=== PATIENT | female | born 1970 | race Caucasian/White ===

== ENCOUNTER 2018-12-02 11:10 | Emergency (ER) | payer BC ==
[~2018-12-02] VITALS: Ht 163.8 cm; Wt 115.2 kg
[2018-12-02] MEDS ORDERED: GELATIN SPONGE SIZE 100. TP ONE (11:45)
[2018-12-02] MEDS ORDERED: GELATIN SPONGE SIZE 12-7MM SPONGE. TP ONE ×2 (12:00→12:15)
[2018-12-02] MEDS ORDERED: TRANEXAMIC ACID 1,000 MG/10 ML VIAL. TOP ONE (12:15)
[2018-12-02 12:56] LABS: BASO # 0.1 x10^3/uL (0.0-0.2); BASO % 1 % (0-3); EOS # 0.4 x10^3/uL (0.0-0.7); EOS % 5 % (0-3); HEMATOCRIT 35.6 % (36.0-47.0); LYMPH # 1.4 x10^3/uL (1.0-4.8); LYMPH % 18 % (24-48); MEAN CORPUSCULAR HEMOGLOBIN 30 pg (25-35); MEAN CORPUSCULAR HGB CONC 34 g/dL (31-37); MEAN CORPUSCULAR VOLUME 89 fL (79-100); MONO # 0.5 x10^3/uL (0.0-1.1); MONO % 6 % (0-9); NEUT # 5.5 x10^3/uL (1.8-7.7); NEUT % 70 % (31-73); PLATELET COUNT 333 x10^3/uL (140-400); RED BLOOD COUNT 3.99 x10^6/uL (3.50-5.40); RED CELL DISTRIBUTION WIDTH 13.4 % (11.5-14.5); WHITE BLOOD COUNT 7.9 x10^3/uL (4.0-11.0)
[2018-12-02 13:29] LABS: PROTHROMBIN TIME PATIENT 30.5 SEC (11.7-14.0)
--- NOTE | 2018-12-02 13:45 | PHYS DOC ---
Past Medical History Past Medical History: Asthma, DVT, Hypertension, Other Additional Past Medical Histor: seasonal allergies Past Surgical History: Hysterectomy, Tonsillectomy, Other Additional Past Surgical Histo: tooth extraction,deviated septum Alcohol Use: Occasionally Drug Use: None Adult General Chief Complaint Chief Complaint: DENTAL PROBLEM HPI HPI Patient is a 47 year old female with history of DVTs, currently on Coumadin 2.5 mg Monday and 5 mg on Tuesdays, day, Monday, who presents to the ED today complaining of gum bleeding that begun yesterday, patient states she had a tooth extracted on Monday this last week, she states she was doing fine until yesterday when she went to get a deep massage then later on started bleeding and has been unable to stop the bleeding. Last dose of Coumadin was yesterday. Review of Systems Review of Systems Constitutional: Denies fever or chills [] HENT: Reports left lower gum bleeding. Musculoskeletal: Denies back pain or joint pain [] Integument: Denies rash or skin lesions [] Neurologic: Denies headache, focal weakness or sensory changes [] All other systems were reviewed and found to be within normal limits, except as documented in this note. Current Medications Current Medications Current Medications Medications (Trade) Dose Ordered Sig/Priscilla Start Time Stop Time Status Last Admin Dose Admin Gelatin (Gelfoam Size 12-7mm) 1 each 1X ONCE 12/02/18 12:15 12/02/18 12:16 DC 12/02/18 12:15 1 EACH Gelatin (Gelfoam Size 100) 1 each 1X ONCE 12/02/18 11:45 12/02/18 11:46 Cancel Tranexamic Acid (Cyklokapron) 1,000 mg 1X ONCE 12/02/18 12:15 12/02/18 12:16 DC Allergies Allergies Allergies Coded Allergies Type Severity Reaction Last Updated Verified Sulfa (Sulfonamide Antibiotics) Allergy Severe "throat swells up" 12/02/18 Yes latex Allergy Severe "makes me have an asthma attack" 12/02/18 Yes shellfish derived Allergy Severe "throat swells" 12/02/18 Yes metronidazole Allergy Intermediate vaginal swelling 12/02/18 Yes codeine Allergy Mild itching 12/02/18 Yes fentanyl Allergy Mild itching 12/02/18 Yes hydrochlorothiazide Allergy Mild itching 12/02/18 Yes hydrocodone Allergy Mild itching 12/02/18 Yes Physical Exam Physical Exam Constitutional: Well developed, well nourished, no acute distress, non-toxic appearance. [] HENT: Normocephalic, atraumatic, bilateral external ears normal, oropharynx moist, nose normal. Left lower gum is bleeding at approximately tooth#19 which has been extracted Skin: Warm, dry, no erythema, no rash. [] Back: No tenderness, no CVA tenderness. [] Extremities: No tenderness, no cyanosis, no clubbing, ROM intact, no edema. [] Neurologic: Alert and oriented X 3, normal motor function, normal sensory function, no focal deficits noted. [] Psychologic: Affect normal, judgement normal, mood normal. [] Current Patient Data Vital Signs Vital Signs Date Time Temp Pulse Resp B/P (MAP) Pulse Ox O2 Delivery O2 Flow Rate FiO2 12/02/18 14:37 88 16 147/89 (108) 97 Room Air 12/02/18 11:35 98.8 98.8 Lab Values Laboratory Tests Test 12/02/18 12:15 White Blood Count 7.9 x10^3/uL (4.0-11.0) Red Blood Count 3.99 x10^6/uL (3.50-5.40) Hemoglobin 12.0 g/dL (12.0-15.5) Hematocrit 35.6 % (36.0-47.0) L Mean Corpuscular Volume 89 fL (79-100) Mean Corpuscular Hemoglobin 30 pg (25-35) Mean Corpuscular Hemoglobin Concent 34 g/dL (31-37) Red Cell Distribution Width 13.4 % (11.5-14.5) Platelet Count 333 x10^3/uL (140-400) Neutrophils (%) (Auto) 70 % (31-73) Lymphocytes (%) (Auto) 18 % (24-48) L Monocytes (%) (Auto) 6 % (0-9) Eosinophils (%) (Auto) 5 % (0-3) H Basophils (%) (Auto) 1 % (0-3) Neutrophils # (Auto) 5.5 x10^3/uL (1.8-7.7) Lymphocytes # (Auto) 1.4 x10^3/uL (1.0-4.8) Monocytes # (Auto) 0.5 x10^3/uL (0.0-1.1) Eosinophils # (Auto) 0.4 x10^3/uL (0.0-0.7) Basophils # (Auto) 0.1 x10^3/uL (0.0-0.2) Prothrombin Time 30.5 SEC (11.7-14.0) H Prothrombin Time INR 2.9 (0.8-1.1) H PTT 50 SEC (24-38) H Laboratory Tests 12/02/18 12:15 EKG EKG [] Radiology/Procedures Radiology/Procedures [] Course & Med Decision Making Course & Med Decision Making Pertinent Labs and Imaging studies reviewed. (See chart for details) This is a 47-year-old female patient on Coumadin presenting to the ED today with left lower gum bleeding after tooth was extracted on Monday last week. Bleeding began yesterday. Arrives in the ED bleeding. Labs are ordered. Gel foam was applied to the area with pressure. CBC with a normal CBC, normal hemoglobin 12.0, and hematocrit. 35.6, INR 2.9 On reassessment bleeding has stopped. Patient discharged to home, instructed not to take today's dose of Coumadin. Instructed to contact her doctor tomorrow morning and ask the doctor if she can take Coumadin tomorrow and what the dose should be. Provided return precautions and discharged in stable condition Kirsten Disclaimer Kirsten Disclaimer This electronic medical record was generated, in whole or in part, using a voice recognition dictation system. Departure Departure Impression: Primary Impression: Gum hemorrhage Additional Impression: Bleeding on Coumadin Disposition: HOME, SELF-CARE Condition: STABLE Referrals: PRASANNA EMANUEL APRN (PCP) Your doctor tomorrow and ask him or her if and when you should resume taking Coumadin. Patient Instructions: Bleeding Time Additional Instructions: Your bleeding on the left lower gum has stopped, your INR today was 2.9. Please do not take today's dose of Coumadin. Contact your doctor tomorrow, ask him or her if you can resume Coumadin and what the dose should be. Scripts Clindamycin Hcl (CLINDAMYCIN HCL) 150 Mg Capsule 1 CAP PO TID, #30 CAP Prov: DEYA BECKER APRN 12/02/18 Problem Qualifiers DEYA BECKER CONTAINER CRANE OPERATOR Dec 02, 2018 13:45
[2018-12-02 14:37] VITALS: BP 147/89
[2018-12-02] MEDS ORDERED: CLIN150C14 PO (14:41)
== END 2018-12-02 14:51 | disposition home or self-care (01) ==
LOC: ER 11:10
DX: K06.8 Other specified disorders of gingiva and edentulous alveolar ridge (principal); D68.32 Hemorrhagic disorder due to extrinsic circulating anticoagulants; J45.909 Unspecified asthma, uncomplicated; I10 Essential (primary) hypertension; Z90.710 Acquired absence of both cervix and uterus; Z90.89 Acquired absence of other organs; Z86.718 Personal history of other venous thrombosis and embolism; Z88.2 Allergy status to sulfonamides; Z88.5 Allergy status to narcotic agent; Z88.8 Allergy status to other drugs, medicaments and biological substances; Z91.040 Latex allergy status; Z91.013 Allergy to seafood
CPT/HCPCS: 36415; 85025; 85610; 85730; 99284

== ENCOUNTER 2019-03-28 14:23 | Emergency (ER) | payer BC ==
[~2019-03-28] VITALS: Ht 163.8 cm; Wt 108.6 kg
[~2019-03-28 14:23] MED LIST: CLIN150C14 PO
[2019-03-28] MEDS ORDERED: IV NORMAL SALINE 1000ML BAG 1,000 ML IV SCH (15:27)
--- NOTE | 2019-03-28 15:45 | PHYS DOC ---
Past Medical History Past Medical History: Asthma, CVA, DVT, Hypertension, Other Additional Past Medical Histor: seasonal allergies Past Surgical History: Hysterectomy, Tonsillectomy, Other Additional Past Surgical Histo: tooth extraction,deviated septum Alcohol Use: Occasionally Drug Use: None Adult General Chief Complaint Chief Complaint: LOWER EXT PAIN HPI HPI Patient is a 48 year old female who presents with a couple days has had left lower leg lateral medial pain that feels like the leg is asleep or as if blood is being cut off to it. Patient states the last couple days is swollen but is less swollen today than it has been. Patient states she has had DVT in that leg before. Patient states this morning she began having left chest pain in between the shoulder blades sharp pain. She rates the pain a 6 out of 10 and states she took Aleve this morning for it. Patient states she also began having a cough and shortness of breath today. Patient denies a recent illness. Patient also states that she's having some throat discomfort today. Review of Systems Review of Systems Constitutional: Denies fever or chills [] Eyes: Denies change in visual acuity, redness, or eye pain [] HENT: Denies nasal congestion. sore throat [] Respiratory: cough or shortness of breath [] Cardiovascular: Left chest pain Musculoskeletal: upper mid back pain or Left lower leg pain and swelling. joint pain [] All other systems were reviewed and found to be within normal limits, except as documented in this note. Current Medications Current Medications Current Medications Medications (Trade) Dose Ordered Sig/Priscilla Start Time Stop Time Status Last Admin Dose Admin Albuterol Sulfate (Ventolin Neb Soln) 2.5 mg 1X ONCE 03/28/19 17:45 03/28/19 17:46 DC 03/28/19 18:01 2.5 MG Aspirin (Dyllan Aspirin) 325 mg 1X ONCE 03/28/19 16:30 03/28/19 16:31 DC 03/28/19 16:49 325 MG Prednisone (Prednisone) 40 mg 1X ONCE 03/28/19 17:45 03/28/19 17:46 DC Sodium Chloride 1,000 ml @ 1,000 mls/hr Q1H 03/28/19 15:27 03/28/19 16:26 DC 03/28/19 16:42 1,000 MLS/HR Allergies Allergies Allergies Coded Allergies Type Severity Reaction Last Updated Verified Sulfa (Sulfonamide Antibiotics) Allergy Severe "throat swells up" 12/02/18 Yes latex Allergy Severe "makes me have an asthma attack" 12/02/18 Yes shellfish derived Allergy Severe "throat swells" 12/02/18 Yes metronidazole Allergy Intermediate vaginal swelling 12/02/18 Yes codeine Allergy Mild itching 12/02/18 Yes fentanyl Allergy Mild itching 12/02/18 Yes hydrochlorothiazide Allergy Mild itching 12/02/18 Yes hydrocodone Allergy Mild itching 12/02/18 Yes Physical Exam Physical Exam Constitutional: Well developed, well nourished, no acute distress, non-toxic appearance. [] HENT: Normocephalic, atraumatic, bilateral external ears normal, oropharynx moist, no oral exudates, nose normal. [] Eyes: PERRLA, EOMI, conjunctiva normal, no discharge. [] Neck: Normal range of motion, no tenderness, supple, no stridor. [] Cardiovascular:Heart rate regular rhythm, no murmur [] Lungs & Thorax: Bilateral breath sounds clear to auscultation [] Abdomen: Bowel sounds normal, soft, no tenderness, no masses, no pulsatile mas ses. [] Skin: Warm, dry, no erythema, no rash. [] Back: No tenderness, no CVA tenderness. [] Extremities: Left lower left lateral and medial tenderness, no cyanosis, no clubbing, ROM intact, LLL 1+ non pitting edema. [] Neurologic: Alert and oriented X 3, normal motor function, normal sensory function, no focal deficits noted. [] Psychologic: Affect normal, judgement normal, mood normal. [] Current Patient Data Vital Signs Vital Signs Date Time Temp Pulse Resp B/P (MAP) Pulse Ox O2 Delivery O2 Flow Rate FiO2 03/28/19 18:05 99 Room Air 03/28/19 17:41 63 16 122/65 (84) 03/28/19 15:10 98.2 98.2 Lab Values Laboratory Tests Test 03/28/19 15:40 03/28/19 16:40 Urine Collection Type Void Urine Color Yellow Urine Clarity Clear Urine pH 6.5 Urine Specific [place] 1.020 Urine Protein Negative mg/dL (NEG-TRACE) Urine Glucose (UA) Negative mg/dL (NEG) Urine Ketones (Stick) Negative mg/dL (NEG) Urine Blood Negative (NEG) Urine Nitrite Negative (NEG) Urine Bilirubin Negative (NEG) Urine Urobilinogen Dipstick 0.2 mg/dL (0.2 mg/dL) Urine Leukocyte Esterase Negative (NEG) Urine RBC 0 /HPF (0-2) Urine WBC Occ /HPF (0-4) Urine Squamous Epithelial Cells Few /LPF Urine Bacteria Few /HPF (0-FEW) White Blood Count 7.6 x10^3/uL (4.0-11.0) Red Blood Count 4.27 x10^6/uL (3.50-5.40) Hemoglobin 12.3 g/dL (12.0-15.5) Hematocrit 36.8 % (36.0-47.0) Mean Corpuscular Volume 86 fL (79-100) Mean Corpuscular Hemoglobin 29 pg (25-35) Mean Corpuscular Hemoglobin Concent 33 g/dL (31-37) Red Cell Distribution Width 13.6 % (11.5-14.5) Platelet Count 349 x10^3/uL (140-400) Neutrophils (%) (Auto) 66 % (31-73) Lymphocytes (%) (Auto) 23 % (24-48) L Monocytes (%) (Auto) 7 % (0-9) Eosinophils (%) (Auto) 3 % (0-3) Basophils (%) (Auto) 1 % (0-3) Neutrophils # (Auto) 5.0 x10^3/uL (1.8-7.7) Lymphocytes # (Auto) 1.8 x10^3/uL (1.0-4.8) Monocytes # (Auto) 0.5 x10^3/uL (0.0-1.1) Eosinophils # (Auto) 0.2 x10^3/uL (0.0-0.7) Basophils # (Auto) 0.1 x10^3/uL (0.0-0.2) Prothrombin Time 16.8 SEC (11.7-14.0) H Prothrombin Time INR 1.4 (0.8-1.1) H D-Dimer (Bre) < 0.27 ug/mlFEU Sodium Level 144 mmol/L (136-145) Potassium Level 4.2 mmol/L (3.5-5.1) Chloride Level 105 mmol/L (98-107) Carbon Dioxide Level 30 mmol/L (21-32) Anion Gap 9 (6-14) Blood Urea Nitrogen 14 mg/dL (7-20) Creatinine 1.0 mg/dL (0.6-1.0) Estimated GFR (Cockcroft-Gault) 59.4 BUN/Creatinine Ratio 14 (6-20) Glucose Level 105 mg/dL (70-99) H Calcium Level 8.6 mg/dL (8.5-10.1) Total Bilirubin 0.6 mg/dL (0.2-1.0) Aspartate Amino Transferase (AST) 20 U/L (15-37) Alanine Aminotransferase (ALT) 33 U/L (14-59) Alkaline Phosphatase 74 U/L (46-116) Troponin I Quantitative < 0.017 ng/mL (0.000-0.055) Total Protein 6.8 g/dL (6.4-8.2) Albumin 3.7 g/dL (3.4-5.0) Albumin/Globulin Ratio 1.2 (1.0-1.7) Laboratory Tests 03/28/19 16:40 Laboratory Tests 03/28/19 16:40 EKG EKG Sinus Rhythm and no STEMI[] Interpretation Time: [address] Ngo Radiology/Procedures Radiology/Procedures [] Impressions: [facility] [address] [place] [address] IMAGING REPORT Signed PATIENT: FAITH MURRAY RACCOUNT: [id number] : 1970 LOCATION: ER AGE: 48 SEX: F EXAM STATUS: REG ER ORD. PHYSICIAN: MAGALYS RAE APRN REASON: Upper back pain, no injury PROCEDURE: THORACIC SPINE 3V Two-view chest and 3 views thoracic spine dated 03/28/2019. No comparison available. Clinical indication: Mid chest pain. FINDINGS: PA and lateral views obtained. Heart and mediastinal contours are within normal limits. Lungs are somewhat hyperinflated but otherwise clear. No consolidation or pleural effusion. No pneumothorax. 3 views thoracic spine show normal sagittal alignment. Vertebral body heights are maintained. Mild endplate hypertrophic changes throughout. No paraspinous soft tissue abnormality. IMPRESSION: 1. No acute radiographic abnormality of chest or thoracic spine. 2. Mild multilevel thoracic spondylosis. Electronically signed by: Festus Mcdowell MD (03/28/2019 4:09 PM) [facility] DICTATED and SIGNED BY: FESTUS MCDOWELL MD DATE: 03/28/[address] [address] IMAGING REPORT Signed PATIENT: FAITH MURRAYCOUNT: [id number] : 1970 LOCATION: ER AGE: 48 SEX: F EXAM STATUS: REG ER ORD. PHYSICIAN: MAGALYS RAE APRN REASON: pain, swelling, hx dvt PROCEDURE: VENOUS LOWER EXTREMITY LEFT VENOUS LOWER EXTREMITY LEFT History: Pain and swelling. History of DVT. Comparison: None. Discussion: Multiple longitudinal and transverse high resolution real-time images of the venous system of left lower extremity were obtained with color and Doppler sampling. Incomplete compression of the left common femoral, deep femoral, superficial femoral and popliteal veins with eccentric echogenicity. There is flow through these veins. No evidence of occlusion. Patent posterior tibial and peroneal veins. Patent greater saphenous vein. Impression: 1. Partial chronic appearing left common femoral to popliteal vein thrombus. Electronically signed by: Sonido Marcum DO (03/28/2019 4:41 PM) [facility] DICTATED and SIGNED BY: SONIDO MARCUM DO DATE: 03/28/[address] [address] IMAGING REPORT Signed PATIENT: FAITH MURRAY RACCOUNT: [id number] : 1970 LOCATION: ER AGE: 48 SEX: F EXAM STATUS: REG ER ORD. PHYSICIAN: MAGALYS RAE APRN REASON: DIZZINESS, HX CVA, ON BLOOD THINNERS PROCEDURE: CT HEAD WO CONTRAST CT head without contrast dated 03/28/2019. No comparison available. CLINICAL INDICATION: Dizziness. History of CVA. TECHNIQUE: Venous axial imaging the head performed from skull base to vertex. No contrast administered. One or more of the following individualized dose reduction techniques were utilized for this examination: 1. Automated exposure control 2. Adjustment of the mA and/or kV according to patient size 3. Use of iterative reconstruction technique. FINDINGS: Ventricles and sulci are within normal limits for age. No midline shift or mass effect. Brain parenchyma is of normal attenuation. No hemorrhage or extra-axial collection. Posterior fossa and brainstem unremarkable. Visualized paranasal sinuses and mastoid air cells are clear. No apparent calvarial abnormality. IMPRESSION: No evidence of acute intracranial abnormality. Electronically signed by: Festus Mcdowell MD (03/28/2019 5:43 PM) [facility] DICTATED and SIGNED BY: FESTUS MCDOWELL MD DATE: 03/28/191742 Course & Med Decision Making Course & Med Decision Making Ambulatory with a steady gait. Skin pink warm and dry. Throat is pink, non swollen and no exudates. Patient states she feels dryness in her throat and then drinks water and will start to cough. Speaks in full clear sentences. Patient is able to change her clothes and change into the gown by herself and get in and out of the bed by herself. 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 With full weight bearing on both lower extremities. Patient denies any weaknesses. The left lower leg is 1+ more swollen than the right lower leg. No calf tenderness but patient states she has tenderness to the medial and lateral aspects of the lower leg. Denies skin color changes or the temperature changes. Pedal pulses strong and present. Cap refill less than 3 seconds. Lung are Clear to auscultation all lobes. Patient states that the pain between her shoulder blades started this morning and that is constant and nothing makes it worse or better. Patient states the pain is sharp. Patient states she has a nonproductive cough that started today. Alert and oriented. PERRLA. Patient states that when she goes to stand up today she's noticed that she is dizzy at times. Patient denies syncope, hitting her head, headache, weakness, abdominal pain, nausea, vomiting, diarrhea, fever, drugs, smoking, visual changes. Bilateral blood pressures are 131/71 and 131/70. Patient has a history of asthma and states that she hasn't had a problem with her asthma since she lost weight. I educated the patient that asthma and does not go away after losing weight. I told the patient that her asthma may be acting up due to the weather change or if she maybe she is started to catch a cold her allergies are acting up. Patient does agree to a breathing treatment to see if that helps with her soa. US shows Impression: 1. Partial chronic appearing left common femoral to popliteal vein thrombus. Patient is already on Xeralto. D dimer negative. I have consulted with Dr Ngo on this patients care plan. She states a chest CTA is not needed and the patient can follow up with primary care provider. Dragon Disclaimer Dragon Disclaimer This electronic medical record was generated, in whole or in part, using a voice recognition dictation system. The HEART Score for CP Pts HEART Score for Chest Pain: HEART Score for Chest Pain Response (Comments) Value History Slighlty/Non-Suspicious 0 ECG Normal 0 Age >45 - < 65 1 Risk Factors 1 or 2 Risk Factors 1 Troponin < Normal Limit 0 Total 2 Risk Factors: Risk Factors: DM, Current or recent (<one month) smoker, HTN, HLP, family history of CAD, obesity. Risk Scores: Score 0 - 3: 2.5% MACE over next 6 weeks - Discharge Home Score 4 - 6: 20.3% MACE over next 6 weeks - Admit for Clinical Observation Score 7 - 10: 72.7% MACE over next 6 weeks - Early Invasive Strategies NIHSS Stroke Scale NIH Stroke Scale: NIH Stroke Scale Response (Comments) Value Level of Consciousness: 0 Alert/Responsive 0 LOC Questions: 0 Answers both correctly 0 LOC Commands: 0 Performs both tasks 0 Best Gaze: 0 Normal 0 Visual: 0 No visual loss 0 Facial Palsy: 0 Normal, symmetrical 0 Motor - Left Arm 0 No drift 0 Motor - Right Arm 0 No drift 0 Motor - Left Leg 0 No drift 0 Motor: Right Leg 0 No drift 0 Limb Ataxia: 0 Absent 0 Sensory: 0 No loss 0 Best Language: 0 Normal 0 Dysathria: 0 Normal 0 Extinction and Inattention: 0 Normal 0 Total 0 Departure Departure Impression: Primary Impression: Cough Additional Impressions: Shortness of breath Chronic deep vein thrombosis (DVT) Disposition: 01 HOME, SELF-CARE Condition: STABLE Referrals: PRASANNA EMANUEL APRN (PCP) Patient Instructions: Asthma, Adult, Deep Vein Thrombosis Additional Instructions: FOLLOW UP WITH PRIMARY CARE PROVIDER TOMORROW. IF YOUR SYMPTOMS WORSEN CALL 911. Scripts Albuterol Sulfate (PROAIR HFA INHALER) 8.5 Gm Hfa.aer.ad 1 PUFF INH PRN Q6HRS PRN for SHORTNESS OF BREATH, #1 INHALER 0 Refills Prov: MAGALYS RAE CLIENT MANAGER [employer] 03/28/19 Methylprednisolone (MEDROL) 4 Mg Tab.ds.pk 1 PKG PO UD, #1 PKG Prov: MAGALYS RAE APRN 03/28/19 Problem Qualifiers Additional Impressions: Chronic deep vein thrombosis (DVT) DVT location: lower extremity Affected thrombotic vein of extremity: femoral Laterality: left Qualified Codes: I82.512 - Chronic embolism and thrombosis of left femoral vein MAGALYS RAE CLIENT MANAGER [employer] Mar 28, 2019 15:45
[2019-03-28 15:51] LABS: BILIRUBIN,URINE NEGATIVE (NEG); CLARITY,URINE CLEAR; COLOR,URINE YELLOW; NITRITE,URINE NEGATIVE (NEG); PH,URINE 6.5; PROTEIN,URINE NEGATIVE (NEG-TRACE); UROBILINOGEN,URINE 0.2 mg/dL (0.2 mg/dL)
[2019-03-28 16:07] LABS: BACTERIA,URINE FEW /HPF (0-FEW); RBC,URINE 0 /HPF (0-2); SQUAMOUS EPITHELIAL CELL,UR FEW /LPF; WBC,URINE OCC /HPF (0-4)
--- NOTE | 2019-03-28 16:12 | RAD ---
Two-view chest and 3 views thoracic spine dated 03/28/2019. No comparison available. Clinical indication: Mid chest pain. FINDINGS: PA and lateral views obtained. Heart and mediastinal contours are within normal limits. Lungs are somewhat hyperinflated but otherwise clear. No consolidation or pleural effusion. No pneumothorax. 3 views thoracic spine show normal sagittal alignment. Vertebral body heights are maintained. Mild endplate hypertrophic changes throughout. No paraspinous soft tissue abnormality. IMPRESSION: 1. No acute radiographic abnormality of chest or thoracic spine. 2. Mild multilevel thoracic spondylosis. Electronically signed by: Festus Mcdowell MD (03/28/2019 4:09 PM) [facility]
[2019-03-28] MEDS ORDERED: ASPIRIN 325 MG TABLET PO ONE (16:30)
--- NOTE | 2019-03-28 16:40 | EKG ---
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
--- NOTE | 2019-03-28 16:44 | RAD ---
VENOUS LOWER EXTREMITY LEFT History: Pain and swelling. History of DVT. Comparison: None. Discussion: Multiple longitudinal and transverse high resolution real-time images of the venous system of left lower extremity were obtained with color and Doppler sampling. Incomplete compression of the left common femoral, deep femoral, superficial femoral and popliteal veins with eccentric echogenicity. There is flow through these veins. No evidence of occlusion. Patent posterior tibial and peroneal veins. Patent greater saphenous vein. Impression: 1. Partial chronic appearing left common femoral to popliteal vein thrombus. Electronically signed by: Sonido Marcum DO (03/28/2019 4:41 PM) [id number]
[2019-03-28 16:55] LABS: BASO # 0.1 x10^3/uL (0.0-0.2); BASO % 1 % (0-3); EOS # 0.2 x10^3/uL (0.0-0.7); EOS % 3 % (0-3); HEMATOCRIT 36.8 % (36.0-47.0); HEMOGLOBIN 12.3 g/dL (12.0-15.5); LYMPH # 1.8 x10^3/uL (1.0-4.8); LYMPH % 23 % (24-48); MEAN CORPUSCULAR HEMOGLOBIN 29 pg (25-35); MEAN CORPUSCULAR HGB CONC 33 g/dL (31-37); MEAN CORPUSCULAR VOLUME 86 fL (79-100); MONO # 0.5 x10^3/uL (0.0-1.1); MONO % 7 % (0-9); NEUT % 66 % (31-73); PLATELET COUNT 349 x10^3/uL (140-400); RED BLOOD COUNT 4.27 x10^6/uL (3.50-5.40); RED CELL DISTRIBUTION WIDTH 13.6 % (11.5-14.5); WHITE BLOOD COUNT 7.6 x10^3/uL (4.0-11.0)
[2019-03-28 17:06] LABS: GFR 59.4; POTASSIUM 4.2 mmol/L (3.5-5.1); PROTHROMBIN TIME PATIENT 16.8 SEC (11.7-14.0)
[2019-03-28 17:10] LABS: D-DIMER < 0.27 ug/mlFEU (0.00-0.50)
[2019-03-28 17:12] LABS: ALBUMIN 3.7 g/dL (3.4-5.0); ALBUMIN/GLOBULIN RATIO 1.2 (1.0-1.7); CALCIUM 8.6 mg/dL (8.5-10.1); TOTAL BILIRUBIN 0.6 mg/dL (0.2-1.0); TOTAL PROTEIN 6.8 g/dL (6.4-8.2)
[2019-03-28] MEDS ORDERED: ALBUTEROL SULFATE 2.5 MG/3 ML NEBU. NEB ONE (17:45)
[2019-03-28] MEDS ORDERED: predniSONE 20 MG TABLET PO ONE (17:45)
--- NOTE | 2019-03-28 17:45 | RAD ---
CT head without contrast dated 03/28/2019. No comparison available. CLINICAL INDICATION: Dizziness. History of CVA. TECHNIQUE: Venous axial imaging the head performed from skull base to vertex. No contrast administered. One or more of the following individualized dose reduction techniques were utilized for this examination: 1. Automated exposure control 2. Adjustment of the mA and/or kV according to patient size 3. Use of iterative reconstruction technique. FINDINGS: Ventricles and sulci are within normal limits for age. No midline shift or mass effect. Brain parenchyma is of normal attenuation. No hemorrhage or extra-axial collection. Posterior fossa and brainstem unremarkable. Visualized paranasal sinuses and mastoid air cells are clear. No apparent calvarial abnormality. IMPRESSION: No evidence of acute intracranial abnormality. Electronically signed by: Festus Mcdowell MD (03/28/2019 5:43 PM) [facility]
[2019-03-28 18:12] VITALS: BP 130/86
[2019-03-28] MEDS ORDERED: METH4TAB2 PO (18:16)
[2019-03-28] MEDS ORDERED: ALBU2.5V8 INH (18:16)
== END 2019-03-28 18:35 | disposition home or self-care (01) ==
LOC: ER 14:23
DX: I82.512 Chronic embolism and thrombosis of left femoral vein (principal); R05 Cough; R06.02 Shortness of breath; R07.89 Other chest pain; R51 Headache; J45.909 Unspecified asthma, uncomplicated; I10 Essential (primary) hypertension; Z86.73 Personal history of transient ischemic attack (TIA), and cerebral infarction without residual deficits; Z90.710 Acquired absence of both cervix and uterus; Z88.2 Allergy status to sulfonamides; Z91.040 Latex allergy status; Z88.4 Allergy status to anesthetic agent; Z88.5 Allergy status to narcotic agent; Z91.018 Allergy to other foods; Z88.8 Allergy status to other drugs, medicaments and biological substances
CPT/HCPCS: 36415; 70450; 71046; 72072; 80053; 81001; 84484; 85025; 85379; 85610; 93005; 93971; 94640; 99285; J7030; J7512; J7613

== ENCOUNTER → 2021-07-07 | Outpatient (CLI) | payer OTHER ==
[~2021-07-07] MED LIST changes: +ALBU2.5V8 INH; -CLIN150C14 PO; +CLIN150C16 PO; +METH4TAB2 PO
--- NOTE | 2021-07-07 16:30 | KCIC ---
EXAMINATION: MRI RIGHT KNEE WITHOUT IV CONTRAST CLINICAL HISTORY: Right knee pain following slip on mud. Patella dislocated laterally. Leg swelling. TECHNIQUE: Multiplanar multisequential images obtained through the knee without intravenous contrast. COMPARISON: Right knee radiographs 07/01/2021 FINDINGS: MENISCI: Medial Meniscus: Intact Lateral Meniscus: Intact LIGAMENTS: ACL: Intact PCL: Intact MCL: Intact LCL Complex: Intact CARTILAGE: Medial Femoral Condyle: Small area(s) of low grade (less than 50% thickness) partial thickness cartil age loss and or fissuring in the weightbearing portion of the condyle Medial Tibial Plateau: Normal Lateral Femoral Condyle: Normal Lateral Tibial Plateau: Normal Patella: Small areas(s) of predominantly low grade (less than 50% thickness) cartilage loss and or fi ssuring with smaller area(s) of full thickness cartilage loss and or fissuring in the medial facet Trochlea: Normal TENDONS: Distal quadriceps and patellar tendons intact. Popliteus tendon intact. BONES AND MARROW: No evidence of acute fracture or suspicious marrow replacing process. MUSCLES: Muscle bulk and signal intensity within normal limits. JOINT FLUID AND SYNOVIUM: No joint effusion. No synovitis. Tiny Gay's cyst. OTHER: Avulsion of the transverse band of the medial patellofemoral ligament at the femoral attachmen t with surrounding soft tissue edema. Medial retinaculum remains intact at the patellar attachment. M ild lateral tilt of the patella. IMPRESSION: Medial patellofemoral ligament avulsion at the femoral attachment with mild lateral tilt of the nieves la. No associated fracture, osteochondral injury, or bone bruises. Electronically signed by: Steve Baird DO (07/07/2021 4:28 PM) [id number]
== END ==
LOC: KCIC MRI 13:51
PROVIDERS: ATTEND Orthopaedic Surgery Sports Medicine
DX: S83.411A Sprain of medial collateral ligament of right knee, initial encounter (principal); X58.XXXA Exposure to other specified factors, initial encounter; Y93.89 Activity, other specified; Y92.89 Other specified places as the place of occurrence of the external cause; Y99.8 Other external cause status
CPT/HCPCS: 73721

== ENCOUNTER → 2021-08-06 | Outpatient (CLI) | payer OTHER ==
[~2021-08-06] MED LIST changes: +ALLO100T PO; +AMLO-187 PO; +CETI10TA74 PO; +CYCL10TA19 PO; +ETON1VAG VG; +FLUT9.9S NS; +LOSA-73 PO; +OXYC1TAB15 PO; +RIVA20TA2 PO
== END ==
LOC: LAB 10:35
PROVIDERS: ATTEND Orthopaedic Surgery Sports Medicine
DX: Z01.812 Encounter for preprocedural laboratory examination (principal); Z20.822 Contact with and (suspected) exposure to COVID-19
CPT/HCPCS: U0003

== ENCOUNTER 2021-08-10 06:00 | Day surgery (SDC) | payer OTHER ==
[~2021-08-10] VITALS: Ht 162.6 cm; Wt 121.5 kg
[~2021-08-10 06:00] MED LIST changes: -ALLO100T PO; -AMLO-187 PO; -CETI10TA74 PO; -CYCL10TA19 PO; -ETON1VAG VG; -FLUT9.9S NS; +IV RINGERS,LACTATED 1000ML 1,000 ML IV SCH; -LOSA-73 PO; -OXYC1TAB15 PO; -RIVA20TA2 PO; +ceFAZolin SODIUM 3 GM in IV DEXTROSE 5% 100ML 100 ML IV PRN; +fentaNYL PF VIAL 100 MCG/2 ML VIAL IVP PRN
[2021-08-10 06:36] VITALS: BP 158/72
[2021-08-10] MEDS ORDERED: ONDANSETRON PF 4 MG/2 ML VIAL. ONE (06:40)
[2021-08-10] MEDS ORDERED: PROPOFOL 10 MG/ML (20ML) VIAL. IV ONE (06:40)
[2021-08-10] MEDS ORDERED: LIDOCAINE 2% PF 5 ML VIAL. ONE (06:40)
[2021-08-10] MEDS ORDERED: GLYCOPYRROLATE 1 MG/5 ML VIAL. ONE (06:41)
[2021-08-10] MEDS ORDERED: SUCCINYLCHOLINE 200 MG/10 ML VIAL. ONE (06:41)
[2021-08-10] MEDS ORDERED: NEOSTIGMINE METHYLSULFATE 5 MG/5 ML SYRINGE. ONE (06:41)
[2021-08-10] MEDS ORDERED: ROCURONIUM 50 MG/5 ML VIAL. ONE (06:41)
[2021-08-10] MEDS ORDERED: FAMOTIDINE 20 MG/2 ML VIAL ONE (06:42)
[2021-08-10] MEDS ORDERED: DEXAMETHASONE SOD PHOS 4 MG/ML VIAL ONE (06:43)
[2021-08-10] MEDS ORDERED: fentaNYL PF VIAL 250 MCG/5 ML VIAL ONE (06:44)
[2021-08-10] MEDS ORDERED: LOSA-73 PO (06:45)
[2021-08-10] MEDS ORDERED: RIVA20TA2 PO (06:45)
[2021-08-10] MEDS ORDERED: ALLO100T PO (06:46)
[2021-08-10] MEDS ORDERED: ETON1VAG VG (06:46)
[2021-08-10] MEDS ORDERED: AMLO-187 PO (06:47)
[2021-08-10] MEDS ORDERED: CETI10TA74 PO (06:47)
[2021-08-10] MEDS ORDERED: FLUT9.9S NS (06:48)
[2021-08-10] MEDS ORDERED: CYCL10TA19 PO (06:48)
[2021-08-10] MEDS ORDERED: DESFLURANE > 120 MINUTES IH ONE (06:50)
[2021-08-10] MEDS ORDERED: LIDOCAINE 1% Multi-Dose 20 ML VIAL. ONE (07:04)
[2021-08-10] MEDS ORDERED: EPINEPHrine VIAL 30 MG/30 ML VIAL ONE (07:04)
[2021-08-10] MEDS ORDERED: BUPIVACAINE MPF 0.5% 30 ML VIAL. ONE (07:05)
[2021-08-10] MEDS ORDERED: DEXMEDETOMIDINE 200 MCG/2 ML VIAL. ONE (07:19)
[2021-08-10] MEDS ORDERED: OXYC1TAB15 PO (08:01)
--- NOTE | 2021-08-10 08:02 | DISCH ---
DISCHARGE INSTRUCTIONS Condition on Discharge Condition on Discharge: Stable Activity After Discharge Activity Instructions for Disc: Other ROM activity Other activity instructions: ok to WBAT with brace locked in extension Bathing Instructions: Shower-keep dressing dry Weight Bearing Status after Di: Other, see below Diet after Discharge Diet after Discharge: Regular Wound Incision Care Wound/Incision Care: Ice to area for comfort, Keep wound/cast CDI, Change dressing Other wound/incision instructi: change dressing in [address] after DC Call your doctor for: Concerns you may have Follow-Up Follow up with: Rell in 2 wks BENNY ARANDA II, MD Aug 10, 2021 08:02
--- NOTE | 2021-08-10 08:06 | PDOC4 ---
Operative Note Operative Note Date of procedure: 08/10/2021 Surgeon: William Aranda Welding Tester: Arnold Rodriges, certified medical transcriptionist was necessary to help position and prepped the patient and for wound closure Preoperative diagnosis: Recurrent right patellar dislocation Postoperative diagnosis: Same Procedure performed: Allograft medial patellofemoral ligament reconstruction Diagnostic knee arthroscopy Anesthesia: General Blood loss: 20 mL Tourniquet time: Less than 1 hour Complications: None Components inserted: Suture fix anchors, 1.9x2, interference screw Findings: Examination under anesthesia demonstrated a dislocatable patella. Knee was otherwise unremarkable grossly arthroscopic findings included grade 2-3 changes centrally patella, remainder of articular cartilage showed no remarkable pathology, lateral tibial plateau was a little soft. Both menisci intact, both cruciates intact Reason for procedure: Patient is a very pleasant 50-year-old female who is still suffering from recurrent patellar dislocations. Please see my outpatient consult note for further details. Clinical and radiographic examination were consistent with the above preoperative diagnosis and MRI calculation for TTT G provided guidance as well. We had a discussion of the risk benefits and alternatives and she wished to proceed. Description of procedure: Patient was greeted in the preoperative area by myself or the correct extremity was marked and verified. She is taken the operative suite and antibiotics were started as she was brought back. Once in the operating room, she was transferred gently supine to the operating table and secured to bed with all pressure points padded. Large pad was placed laterally at her hip and a padded foot rest was secured to the bed to maintain her knee at 90 degrees passively. She underwent successful induction of a general anesthetic. Examination under anesthesia was conducted. The nonsterile tourniquet was applied and taped in place to the right thigh. We then proceeded prep and drape right lower extremity our usual sterile fashion and conducted our standard preoperative timeout. After this, we exsanguinated extremity with Esmarch and insufflated tourniquet to 250 mmHg. I then palpated marked surface anatomy and johnny lines for my planned incisions. I then created my anterolateral portal and introduced the blunt arthroscopic trocar into the suprapatellar pouch and noted the above findings. After this I remove all excess arthroscopic fluid and the arthroscopic instrumentation. I proceeded to make an incision over the upper two thirds medially at her patella. I incised skin with a scalpel and dissected subcutaneous tissue with tenotomy's using electrocautery as needed. Identified the appropriate layers, and upon entering layer to I made a note of it and proceeded to expose the medial border of the patella at its upper two thirds. I used a rongeur to prepare a small bony trough. After this I placed my 2 suture anchors. I then incised skin over her medial epicondyle and dissected with combination of electrocautery and Metzenbaums. Placed a self-retaining retractor here. After I had reached the distal femur I brought in C arm to help localize the correct point 1 mm anterior to the posterior cortical extension line and 2.5 mm distal to the condylar extension line. I then advanced my Beath pin out through the anterolateral knee. After this I worked in layer to and bluntly developed the plane to shuttle my suture limbs and graft. After this I whipstitched my graft ends with my assistance help and proceeded to secure the graft in place tying it down securely over at the patellar border. I then used a free stitch to shuttle the suture limbs through my graft to the medial epicondyle incision. Previously I had measured my graft and it was easily passable at 8 mm tunnel. I did drill an 8 mm tunnel into the distal femur over my Beath pin taking care to protect soft tissues. After this I used a Beath pin and shuttled the whipstitch suture ends and passed then docked them one by one into the tunnel under direct visualization. I then placed my nitinol wire. The knee was held at about 30 degrees of flexion and I had my assistant plant manager pull traction on the suture limbs exiting anterolaterally from the knee for tension. I then secured my interference screw. After this I placed the arthroscopic camera into the knee again and took a picture of a well centered patella. She had a good stop. I then removed all excess fluid and the arthroscopic instrumentation and irrigated out the incisions. Inverted interrupted 2-0 Vicryl was used for subcutaneous tissue in a multilayered fashion followed by 3-0 Monocryl in a buried subcuticular fashion for skin with the exception of 3-0 nylon over the portal incision. Prior to wound closure all counts correct x2. No complications. She tolerated surgery well. At the conclusion she was awake from anesthesia and transferred gently supine to the recovery room cart and taken to PACU in stable and extubated condition after the leg was cleansed and dried and a sterile bulky dressing was applied followed by a hinged knee brace. We will get her started on physical therapy. I will see her back in 2 weeks, sooner should a problem arise WILLIAM ARANDA II, MD Aug 10, 2021 08:06
[2021-08-10] MEDS ORDERED: DESFLURANE 61 TO 120 MINUTES IH ONE (09:44)
[2021-08-10] MEDS ORDERED: PROCHLORPERAZINE 10 MG/2 ML VIAL. ONE (09:56)
[2021-08-10] MEDS ORDERED: HYDROmorphone 2 MG/ML INJ. ONE (09:56)
[2021-08-10] MEDS: PROCHLORPERAZINE 10 MG/2 ML VIAL. IVP PRN ×2 (10:00→10:11)
[2021-08-10] MEDS ORDERED: oxyCODONE/APAP 5/325 1 TAB TABLET PO ONE ×2 (10:00)
[2021-08-10] MEDS: HYDROmorphone 2 MG/ML INJ. IVP PRN ×4 (10:02→10:30)
[2021-08-10] MEDS ORDERED: MORPHINE SULFATE 2 MG/ML INJ. ONE (10:33)
[2021-08-10] MEDS: MORPHINE SULFATE 2 MG/ML INJ. IVP PRN ×2 (10:35→10:45)
[2021-08-10 12:00] VITALS: BP 129/84
== END 2021-08-10 12:15 | disposition home or self-care (01) ==
LOC: SURG 06:00
PROVIDERS: ATTEND Orthopaedic Surgery Sports Medicine
DX: M22.01 Recurrent dislocation of patella, right knee (principal); I10 Essential (primary) hypertension; J45.909 Unspecified asthma, uncomplicated; G47.30 Sleep apnea, unspecified; E66.9 Obesity, unspecified; M19.90 Unspecified osteoarthritis, unspecified site; M10.9 Gout, unspecified; F41.9 Anxiety disorder, unspecified; F32.9 Major depressive disorder, single episode, unspecified; Z79.899 Other long term (current) drug therapy; Z98.890 Other specified postprocedural states; Z88.1 Allergy status to other antibiotic agents; Z88.2 Allergy status to sulfonamides; Z88.5 Allergy status to narcotic agent; Z88.8 Allergy status to other drugs, medicaments and biological substances
CPT/HCPCS: 27428; 36415; 82306; A4364; A4930; C1713; C1762; J0171; J0330; J0780; J1100; J1170; J2270; J2405; J2704; J2710; J3010; J3490; 76000; A4223; A4452; A6454